=== PATIENT | female | born 2000 | race Two or more races ===

== ENCOUNTER 2023-10-24 17:17 | Emergency (ER) | payer OTHER ==
[~2023-10-24] VITALS: Ht 167.6 cm; Wt 63.5 kg
[2023-10-24] MEDS ORDERED: ORPHENADRINE CITRATE 100 MG TABLET PO ONE (18:00)
[2023-10-24] MEDS ORDERED: KETOROLAC TROMETHAMINE 10 MG TABLET PO ONE (18:00)
[2023-10-24] MEDS ORDERED: DICLOFENAC SODI50 MG PO (19:35)
[2023-10-24] MEDS ORDERED: NORFLEX100MG PO (19:35)
== END 2023-10-24 19:51 ==
LOC: ER 17:18
DX: M62.838 Other muscle spasm (principal)